=== PATIENT | male | born 1985 | race Caucasian/White ===

== ENCOUNTER 2022-03-02 15:22 | Emergency (ER) | payer OTHER ==
[~2022-03-02] VITALS: Ht 180.3 cm; Wt 83.9 kg
[2022-03-02 15:33] VITALS: BP 134/79
--- NOTE | 2022-03-02 15:36 | NUR ---
PT AMBULATED TO LOBBY
--- NOTE | 2022-03-02 16:00 | NUR ---
37/M WALKED IN C/O LEFT RIB PAIN RADIATING TO LEFT BACK AND SHOULDER ONSET 8 MONTHS. PT DENIES FALL OR INJURY. PT DESCRIBES PAIN INTERMITTENT AND BURNING SENSATION. AAO4, AMBULATORY, VITALS Stable, no acute distress noted PMH: DENIES
--- NOTE | 2022-03-02 18:30 | NUR ---
CALLED IN LOBBY, NO ANSWER
--- NOTE | 2022-03-02 18:40 | NUR ---
PT CALLED AT LOBBY, NO ANSWER. PT LEFT PRIOR TO DC
== END 2022-03-02 18:40 | disposition home or self-care (01) ==
LOC: MED 15:22
DX: R07.81 Pleurodynia (principal); R03.0 Elevated blood-pressure reading, without diagnosis of hypertension
CPT/HCPCS: 71101; 99283

== ENCOUNTER 2022-03-04 12:09 | Emergency (ER) | payer OTHER ==
[~2022-03-04] VITALS: Ht 172.7 cm; Wt 89.4 kg
[2022-03-04 12:20] VITALS: BP 139/89
[2022-03-04] MEDS ORDERED: IBUPROFEN 600 MG TAB PO ONE (12:55)
[2022-03-04 13:32] LABS: BASOPHILS # (AUTO) 0.1 K/uL (0.00-0.22); BASOPHILS % (AUTO) 0.9 % (0.0-2.0); EOSINOPHILS # (AUTO) 0.1 K/uL (0-0.4); EOSINOPHILS % (AUTO) 1.7 % (0.0-4.0); HEMATOCRIT 47.4 % (36-52); HEMOGLOBIN 16.1 g/dL (12.0-18.0); LYMPHOCYTES # (AUTO) 2.4 K/uL (2.0-11.5); MEAN CORPUSCULAR HEMOGLOBIN 30 pg (27-31); MEAN CORPUSCULAR HGB CONC 34 g/dL (33-37); MEAN CORPUSCULAR VOLUME 87.5 fL (80-94); MONOCYTES # (AUTO) 0.6 K/uL (0.8-1.0); NEUTROPHILS # (AUTO) 3.5 K/uL (1.8-7.7); NEUTROPHILS % (AUTO) 52.4 % (42.2-75.2); PLATELET COUNT (AUTO) 281 K/uL (140-450); RED BLOOD CELL COUNT(AUTO) 5.42 MIL/uL (4.20-6.10); RED CELL DISTRIBUTION WIDTH 13.3 % (11.6-13.7); WHITE BLOOD COUNT (AUTO) 6.8 K/uL (4.8-10.8)
[2022-03-04 13:43] LABS: ALBUMIN 4.4 g/dL (3.4-5.0)
[2022-03-04 13:49] LABS: ANION GAP 5.6 (8-16); CARBON DIOXIDE 30.6 mmol/L (21-32); CREATININE 1.2 mg/dL (0.6-1.3); POTASSIUM 4.2 mmol/L (3.5-5.1); TOTAL BILIRUBIN 0.6 mg/dL (0.0-1.0)
[2022-03-04 13:53] LABS: APPEARANCE,URINE CLEAR (CLEAR); BILIRUBIN,URINE NEGATIVE (NEGATIVE); BLOOD, URINE TRACE-I (NEGATIVE); COLOR,URINE YELLOW (YELLOW); LEUKOCYTE ESTERASE ,URINE NEGATIVE (NEGATIVE); NITRITE, URINE NEGATIVE (NEGATIVE); UGLUCOSE NEGATIVE (NEGATIVE)
[2022-03-04 14:08] LABS: OTHER CASTS, URINE None Seen /LPF (None Seen); WBC,URINE 0-5 /HPF (0-5)
--- NOTE | 2022-03-04 15:26 | NUR ---
Patient left without discharge paperwork.
--- NOTE | 2022-03-04 15:27 | NUR ---
The patient's care was reviewed and supervised by Airam Carlin, RN, RN.
--- NOTE | 2022-03-04 15:27 | NUR ---
Note mike in EDM - 03/04/22 at 1551 by [facility] 37M PRESENTS TO ED WITH C/O LUQ ABD PAIN, LEFT FLANK X2 WEEKS. PT DENIES TRAUMA/INJURY. PT REPORTS BEING SEEN 2 DAYS AGO HERE FOR SAME COMPLAINT. PMH:ZINAIES RAMESH
== END 2022-03-04 15:26 | disposition home or self-care (01) ==
LOC: MED 12:09
DX: R07.81 Pleurodynia (principal); R03.0 Elevated blood-pressure reading, without diagnosis of hypertension
CPT/HCPCS: 36415; 80053; 81001; 83690; 85025; 93005; 99284